=== PATIENT | female | born 1950 | race Caucasian/White ===

== ENCOUNTER 2018-11-21 00:37 | Outpatient (CLI) | payer MEDICARE, SELFPAY ==
--- NOTE | 2018-11-21 08:11 | DI.US_ITS ---
SYMPTOM/DIAGNOSIS: STAGE IV CHRONIC KIDNEY DISEASE. RENAL ULTRASOUND: Routine examination. No priors. The right kidney measures 10.3 cm. long. There does appear to be mild renal cortical atrophy. There is mild prominence of the right renal collecting system. Echogenic foci are seen within the right kidney suggesting non obstructing stones, the largest is seen in the mid pole measuring .5 cm. Blood flow is seen to the right kidney. The left kidney measures 11.2 cm. in length. There is mild renal cortical atrophy noted. There is a central, 1.7 cm. anechoic area in the left renal pelvis which may reflect a renal cyst. There do appear to be tiny echogenic foci within the left kidney suspicious for non obstructing stones. There is blood flow seen to the left kidney. The urinary bladder is inadequately filled with only 13 cc's. Bladder evaluation is limited due to inadequate filling. IMPRESSION: Mild bilateral renal cortical atrophy. Findings suggestive of bilateral nephrolithiasis. Findings suspicious for mild right hydronephrosis.
== END 2018-11-21 00:57 ==
PROVIDERS: PCP Family Medicine; Visit Provider Internal Medicine Nephrology
DX: N18.4 Chronic kidney disease, stage 4 (severe) (principal); N26.1 Atrophy of kidney (terminal); N20.0 Calculus of kidney; N13.30 Unspecified hydronephrosis
CPT/HCPCS: 76770

== ENCOUNTER 2020-02-20 01:34 | Outpatient (CLI) | payer MEDICARE, SELFPAY ==
[2020-02-20 11:51] LABS: Abs Immature Grans 0.02 k/cumm (0.0-0.09); Absolute Basophil Count 0.03 k/cumm (0.0-0.2); Absolute Eosinophil Count 0.19 k/cumm (0.0-0.7); Absolute Lymphocyte Count 1.46 k/cumm (1.2-3.4); Absolute Monocyte Count 0.49 k/cumm (0.11-0.7); Absolute Neutrophil Count 3.55 k/cumm (1.2-6.7); Basophils % 0.5; Eosinophils % 3.3; HCT 42.3 % (36.0-46.0); HGB 13.9 g/dL (12.0-15.5); Immature Grans % 0.3 %; Lymphocytes % 25.4; Mean Corp. HGB Concentration 32.9 g/dL (32.0-36.0); Mean Corpuscular Hemoglobin 29.4 pg (27.0-33.0); Mean Corpuscular Volume 89.4 fL (80-95); Mean Platelet Volume 10.6 fL (8.0-11.0); Monocytes % 8.5; Platelet Count 250 x1000/uL (130-400); RBC 4.73 m/cumm (4.00-5.20); RBC Distribution Width 14.4 % (11.7-14.6); White Blood Cell Count 5.74 k/cumm (4.4-10.8)
[2020-02-20 13:13] LABS: Albumin 3.9 g/dL (3.4-5.0); Anion Gap 10.3 mmol/L (3-11); BUN 29 mg/dL (7-18); CO2 21.7 mmol/L (21.0-32.0); CREATININE 2.04 mg/dL (0.55-1.02); Calcium 9.3 mg/dL (8.5-10.1); Chloride 107 mmol/L (98-107); Estimated GFR 24.15 (mL/min/1.73m2); Glucose 164 mg/dL (74-106); PHOSPHORUS 4.5 mg/dL (2.6-4.7); Sodium 139 mmol/L (136-145); Uric Acid 6.3 mg/dL (2.6-6.0)
[2020-02-20 13:23] LABS: Potassium 6.2 mmol/L (3.5-5.1)
[2020-02-20 13:25] LABS: Calculated LDL 75 mg/dL (<100); Cholesterol 161 mg/dL (<200); HDL Cholesterol 39 mg/dL (40-60); TSH (W/Ref FT4) 5.61 uIU/mL (0.36-3.74); Triglyceride 239 mg/dL (<150)
[2020-02-20 14:01] LABS: FREE T4 1.01 ng/dL (0.76-1.46)
[2020-02-21 08:42] LABS: Parathyroid Hormone,Intact 109 pg/mL (19-88)
== END 2020-02-20 01:54 ==
PROVIDERS: PCP Family Medicine; Visit Provider Internal Medicine Nephrology
DX: E11.9 Type 2 diabetes mellitus without complications (principal); N18.9 Chronic kidney disease, unspecified; R82.998 Other abnormal findings in urine
CPT/HCPCS: 36415; 80048; 80061; 82040; 83970; 84100; 84439; 84443; 84550; 85025

== ENCOUNTER 2020-02-20 15:26 | Observation (INO) | payer MEDICARE, SELFPAY ==
--- NOTE | 2020-02-20 15:30 | RT.EKG_ITS ---
APPROVED REPORT Exam: Resting ECG Patient Location: E HR:85 bpm ECG Measurements Heart Rate 85 AXIS SD 175 P 40 QRSd 96 QRS -17 QT 365 T 72 QTc 435 <Conclusion> Sinus rhythm...normal P axis, V-rate 60- 99. T wave inversion aVL. No acute ST ischemic changes. I have reviewed and interpreted ECG and agree with software generated interpretation.
[2020-02-20 15:35] VITALS: BP 174/99; PULSE 88; RESP 18; TEMP 37.1; O2SAT 95
[2020-02-20 15:58] LABS: Abs Immature Grans 0.02 k/cumm (0.0-0.09); Absolute Basophil Count 0.03 k/cumm (0.0-0.2); Absolute Eosinophil Count 0.16 k/cumm (0.0-0.7); Absolute Lymphocyte Count 1.81 k/cumm (1.2-3.4); Absolute Monocyte Count 0.56 k/cumm (0.11-0.7); Basophils % 0.5; Eosinophils % 2.6; HCT 42.8 % (36.0-46.0); Immature Grans % 0.3 %; Lymphocytes % 29.8; Mean Corp. HGB Concentration 32.7 g/dL (32.0-36.0); Mean Corpuscular Hemoglobin 28.9 pg (27.0-33.0); Mean Corpuscular Volume 88.2 fL (80-95); Mean Platelet Volume 10.5 fL (8.0-11.0); Monocytes % 9.2; Neutrophils % 57.6; Platelet Count 214 x1000/uL (130-400); RBC 4.85 m/cumm (4.00-5.20); RBC Distribution Width 14.3 % (11.7-14.6); White Blood Cell Count 6.08 k/cumm (4.4-10.8)
[2020-02-20 16:01] LABS: Bilirubin Negative (Negative); Blood Negative (Negative); Clarity Clear (Clear); Glucose Negative (Negative); Ketones Negative (Negative); Leukocyte Esterase Trace (Negative); Nitrite Negative (Negative); Specific Gravity 1.025 (1.005-1.025); Urobilinogen 0.2 EU/dL (Up TO 0.2); pH 5.5 (5-8)
[2020-02-20 16:13] LABS: Bacteria Negative HPF (Negative); C & S Indicated? Yes; Casts Negative LPF (Negative); Crystals Negative HPF (Negative); Epithelial Cells Few HPF (Negative); Mucus Negative (Negative); Other Cells Negative (Negative); RBC Negative HPF (0-2)
[2020-02-20 16:13] LABS: ALT 10 U/L (14-59); AST 18 U/L (15-37); Alkaline Phosphatase 68 U/L (46-116); Anion Gap 10.2 mmol/L (3-11); BUN 28 mg/dL (7-18); Bilirubin, Total 0.6 mg/dL (0.2-1.0); CO2 22.8 mmol/L (21.0-32.0); CREATININE 2.16 mg/dL (0.55-1.02); Calcium 9.4 mg/dL (8.5-10.1); Chloride 107 mmol/L (98-107); Glucose 110 mg/dL (74-106); Magnesium 2.1 mg/dL (1.8-2.4); Potassium 5.6 mmol/L (3.5-5.1); Sodium 140 mmol/L (136-145)
[2020-02-20 16:14] LABS: Troponin I < 0.05 ng/mL (<0.06)
[2020-02-20 16:38] VITALS: BP 143/69; PULSE 85; RESP 16; O2SAT 95
--- NOTE | 2020-02-20 16:38 | ED.GENADUL_ITS ---
Discharge Plan Disposition Patient Disposition: [facility] INPATIENT Condition: Stable Discharge Details Chief Complaint: GenMedical Clinical Impression: Hyperkalemia, Chronic kidney disease Primary Care Provider: Anthony Pearl ED Provider: Fabienne Jackson Home Meds and New Rx's Prescriptions: Continued Humulin R Regular U-100 Insuln 100 unit/mL solution See Rx Instructions SC USEASDIRECTD Qty: 10 RF: 12 amlodipine 10 mg tablet 10 mg PO DAILY Qty: 90 RF: 3 artificial tears(hypromellose) 0.3 % drops 1 drp OP QAM PRNRF: 0 insulin NPH isoph U-100 human 100 unit/mL suspension 50 unit SC BID Qty: 10 RF: 6 magnesium chloride tablet 64 mg PO BID RF: 0 acetaminophen [Tylenol Extra Strength] 500 MG tablet 1,000 mg PO DAILY RF: 0 anastrozole 1 mg tablet 1 mg PO DAILY Qty: 90 RF: 3 (DME) BD Insulin Syringe 1 mL 26 x 1/2 syringe 1 ea Miscellaneous Qty: 90 RF: 3 (DME) pen needle, diabetic [BD Ultra-Fine Yue Pen Needle] 32 gauge x 5/32 needle 1 ea Miscellaneous TID Qty: 200 RF: 12 levothyroxine 75 mcg tablet 75 mcg PO DAILY Qty: 90 RF: 3 metoprolol succinate 50 mg tablet extended release 24 hr 50 mg PO DAILY 90 Days Qty: 90 RF: 3 simvastatin 40 mg tablet 20 mg PO QHS Qty: 45 RF: 3 aspirin [Aspir-81] 81 MG tablet,delayed release (DR/EC) 1 tab PO DAILY RF: 0 Discontinued lisinopril 40 mg tablet 40 mg PO DAILY Qty: 90 RF: 3 Discharge Instructions Instructions: Hyperkalemia (ED) Additional Instructions: Stop taking your lisinopril today. Increase your dose of metoprolol this evening from 50 mg to 75 mg daily. Follow-up with your scheduled appointment with your primary care doctor tomorrow for reevaluation and continued medication management as well as for referral for outpatient stress test and echocardiogram. Return to the emergency department if you develop any worsening or concerning symptoms. Discharge Data Discharge Physician: Fabienne Jackson Medical Decision Making 1610 -- 69-year-old female with a history of hypertension, hyperlipidemia, chronic kidney disease, diabetes, breast cancer in remission presents after sent by PCP for hyperkalemia of 6.2 on routine labs drawn today. Patient has no acut e complaints. Labs from today also note that patient's creatinine is 2.04 with a GFR of 24 which is a worsening of her baseline chronic kidney disease. BP is hypertensive 174/99. Patient is taking 10 mg amlodipine, 40 mg lisinopril, and 50 mg of metoprolol daily. EKG done on arrival notes a rate of 85 sinus with T wave inversion in aVL but no acute ST ischemic changes. Labs were repeated on patient arrival and note that potassium has mildly decreased to 5.6, creatinine 2.16, GFR 22. Troponin negative. 1630 --Case discussed with hospitalist who came to evaluate patient. Dr. Rodriguez came to evaluate patient in the ED. Recommends a dose of Lokelma and IV fluids and to recheck potassium and creatinine after 2 hours. If labs improve, patient can be discharged home with plan for holding lisinopril and increase her metoprolol to 75 mg daily. Patient has a follow-up appointment with her PCP office tomorrow. 1899 --repeat BMP notes that potassium has increased to 6.1. Minimal improve ment in creatinine. Patient still asymptomatic. Will admit overnight for telemetry monitoring. Patient is agreeable with plan. Case discussed with hospitalist who accepts patient for admission. Medical Records Medical records reviewed: Yes I reviewed the patient's medical records. Lab Data Lab results reviewed: Yes I reviewed the patient's lab results. Labs: 02/20/20 13:55 Urine - Reflex from Ua Urine Culture - Pending Laboratory Tests Range/Units 02/20/20 02/20/20 02/20/20 13:55 15:50 15:50 WBC (4.4-10.8) k/cumm 6.08 RBC (4.00-5.20) m/cumm 4.85 Hgb (12.0-15.5) g/dL 14.0 Hct (36.0-46.0) % 42.8 MCV (80-95) fL 88.2 MCH (27.0-33.0) pg 28.9 MCHC (32.0-36.0) g/dL 32.7 RDW (11.7-14.6) % 14.3 Plt Count (130-400) x1000/uL 214 MPV (8.0-11.0) fL 10.5 Immature Gran % % 0.3 Neutrophils % 57.6 Lymphocytes % 29.8 Monocytes % 9.2 Eosinophils % 2.6 Basophils % 0.5 Absolute Neutrophils (1.2-6.7) k/cumm 3.50 Absolute Lymphocytes (1.2-3.4) k/cumm 1.81 Absolute Monocytes (0.11-0.7) k/cumm 0.56 Absolute Eosinophils (0.0-0.7) k/cumm 0.16 Absolute Basophils (0.0-0.2) k/cumm 0.03 Sodium (136-145) mmol/L 140 Potassium (3.5-5.1) mmol/L 5.6 H Chloride (98-107) mmol/L 107 Carbon Dioxide (21.0-32.0) mmol/L 22.8 Anion Gap (3-11) mmol/L 10.2 BUN (7-18) mg/dL 28 H Creatinine (0.55-1.02) mg/dL 2.16 H Estimated GFR/1.73 m2 (mL/min/1.73m2) 22.60 Glucose (74-106) mg/dL 110 H D Calcium (8.5-10.1) mg/dL 9.4 Magnesium (1.8-2.4) mg/dL 2.1 Total Bilirubin (0.2-1.0) mg/dL 0.6 AST (15-37) U/L 18 ALT (14-59) U/L 10 L Alkaline Phosphatase (46-116) U/L 68 Troponin I (<0.06) ng/mL < 0.05 Total Protein (6.4-8.2) g/dL 8.0 Albumin (3.4-5.0) g/dL 4.0 Urine Color (Yellow) Yellow Urine Clarity (Clear) Clear Urine pH (5-8) 5.5 Ur Specific [place] (1.005-1.025) 1.025 Urine Protein (Negative) mg/dL 30 H Urine Ketones (Negative) mg/dL Negative Urine Blood (Negative) Negative Urine Nitrite (Negative) Negative Urine Bilirubin (Negative) Negative Urine Urobilinogen (Up TO 0.2) EU/dL 0.2 Ur Leukocyte Esterase (Negative) Trace H Urine RBC (0-2) HPF Negative Urine WBC (0-5) HPF 5-10 Ur Epithelial Cells (Negative) HPF Few Urine Crystals (Negative) HPF Negative Urine Bacteria (Negative) HPF Negative Urine Casts (Negative) LPF Negative Urine Mucus (Negative) Negative Urine Other (Negative) Negative Ur Culture Indicated? Yes Urine Glucose (Negative) mg/dL Negative Range/Units 02/20/20 18:50 WBC (4.4-10.8) k/cumm RBC (4.00-5.20) m/cumm Hgb (12.0-15.5) g/dL Hct (36.0-46.0) % MCV (80-95) fL MCH (27.0-33.0) pg MCHC (32.0-36.0) g/dL RDW (11.7-14.6) % Plt Count (130-400) x1000/uL MPV (8.0-11.0) fL Immature Gran % % Neutrophils % Lymphocytes % Monocytes % Eosinophils % Basophils % Absolute Neutrophils (1.2-6.7) k/cumm Absolute Lymphocytes (1.2-3.4) k/cumm Absolute Monocytes (0.11-0.7) k/cumm Absolute Eosinophils (0.0-0.7) k/cumm Absolute Basophils (0.0-0.2) k/cumm Sodium (136-145) mmol/L 139 Potassium (3.5-5.1) mmol/L 6.1 H* Chloride (98-107) mmol/L 108 H Carbon Dioxide (21.0-32.0) mmol/L 22.9 Anion Gap (3-11) mmol/L 8.1 BUN (7-18) mg/dL 28 H Creatinine (0.55-1.02) mg/dL 2.06 H Estimated GFR/1.73 m2 (mL/min/1.73m2) 23.88 Glucose (74-106) mg/dL 84 Calcium (8.5-10.1) mg/dL 8.7 Magnesium (1.8-2.4) mg/dL Total Bilirubin (0.2-1.0) mg/dL AST (15-37) U/L ALT (14-59) U/L Alkaline Phosphatase (46-116) U/L Troponin I (<0.06) ng/mL Total Protein (6.4-8.2) g/dL Albumin (3.4-5.0) g/dL Urine Color (Yellow) Urine Clarity (Clear) Urine pH (5-8) Ur Specific [place] (1.005-1.025) Urine Protein (Negative) mg/dL Urine Ketones (Negative) mg/dL Urine Blood (Negative) Urine Nitrite (Negative) Urine Bilirubin (Negative) Urine Urobilinogen (Up TO 0.2) EU/dL Ur Leukocyte Esterase (Negative) Urine RBC (0-2) HPF Urine WBC (0-5) HPF Ur Epithelial Cells (Negative) HPF Urine Crystals (Negative) HPF Urine Bacteria (Negative) HPF Urine Casts (Negative) LPF Urine Mucus (Negative) Urine Other (Negative) Ur Culture Indicated? Urine Glucose (Negative) mg/dL ECG Data Attestation: I personally reviewed and interpreted this ECG (s) as follows: Interpretation: Rate of 85, sinus, no acute ST elevation or depression. CO 135. QRS 96. QTc 435. HPI General Mode of arrival: ambulatory . Date/Time Provider Initiated Documentation: 02/20/20 15:40 . Limitations to Documentation: no limitations . Information obtained by: patient . HPI Narrative: Pt is a 69yo F with a history of hypertension, diabetes, breast cancer in remission, chronic kidney disease who presents for evaluation after sent by PCP for high potassium noted on routine blood work today. Patient states she has a follow-up appointment with her primary care doctor tomorrow and had blood work drawn today as part of routine follow-up. She was noted to have a potassium of 6.2 today. She denies any acute symptoms. She does note that over the past few months she becomes more short of breath and fatigued with exertion but states this has been getting progressively worse over a few months denies any acute change in the past few days. Related Data Home Medications Medication Instructions Recorded Confirmed aspirin [Aspir-81] 1 tab PO DAILY 09/26/13 02/20/20 acetaminophen [Tylenol Extra 1,000 mg PO DAILY tab 04/09/18 02/20/20 Strength] anastrozole 1 mg tablet 1 mg PO DAILY #90 tab 07/30/18 02/20/20 insulin syringe-needle U-100 1 mL #90 syringe 03/14/19 10/08/19 26 x 1/2 pen needle, diabetic 32 gauge x #200 each 08/09/0110/08/19 amlodipine 10 mg tablet 10 mg PO DAILY #90 tab 04/09/19 02/20/20 insulin regular human 100 unit/mL See Rx Instructions SC 04/09/19 02/20/20 injection solution USEASDIRECTD #10 ml magnesium chloride 64 mg PO BID 04/09/19 02/20/20 levothyroxine 75 mcg tablet 75 mcg PO DAILY #90 tab 04/25/19 02/20/20 metoprolol succinate 50 mg 50 mg PO DAILY 90 Days #90 tab 05/20/19 02/20/20 tablet,extended release 24 hr simvastatin 40 mg tablet 20 mg PO QHS #45 tab 07/22/19 02/20/20 artificial tears(hypromellose) 0.3 1 drp OP QAM PRN ml 10/08/19 02/20/20 % eye drops insulin NPH isoph U-100 human 100 50 unit SC BID #10 ml 10/08/19 02/20/20 unit/mL subcutaneous suspension Previous Rx's Medication Instructions Recorded anastrozole 1 mg tablet 1 mg PO DAILY #90 tab 07/30/18 insulin syringe-needle U-100 1 mL #90 syringe 03/14/19 26 x 1/2 pen needle, diabetic 32 gauge x #200 each 03/14/19 amlodipine 10 mg tablet 10 mg PO DAILY #90 tab 04/09/19 insulin regular human 100 unit/mL See Rx Instructions SC 04/09/19 injection solution USEASDIRECTD #10 ml levothyroxine 75 mcg tablet 75 mcg PO DAILY #90 tab 04/25/19 metoprolol succinate 50 mg 50 mg PO DAILY 90 Days #90 tab 05/20/19 tablet,extended release 24 hr simvastatin 40 mg tablet 20 mg PO QHS #45 tab 07/22/19 insulin NPH isoph U-100 human 100 50 unit SC BID #10 ml 10/08/19 unit/mL subcutaneous suspension Allergies Allergy/AdvReac Type Severity Reaction Status Date / Time amoxicillin [Amoxicillin] Allergy Intermediate Hives Verified 02/20/20 16:33 General Stated Complaint: GenMedical OSIRIS: 3 Review of Systems All systems reviewed & are unremarkable except as noted in HPI and below Constitutional Constitutional: Reports as per HPI, Denies chills and Denies fever(s) Eyes Eyes: Denies blurry vision ENT Ears, Nose, Mouth, and Throat: Denies dizziness, Denies sore throat and Denies throat swelling Cardiovascular Cardiovascular: Denies chest pain and Denies dyspnea Respiratory Respiratory: Denies cough and Denies dyspnea Gastrointestinal Gastrointestinal: Denies abdominal pain, Denies diarrhea and Denies vomiting Genitourinary Genitourinary: Denies hematuria and Denies dysuria Musculoskeletal Musculoskeletal: Denies back pain and Denies numbness Integumentary/Breasts Skin/Breast: Denies lesions and Denies rash Neurologic Neurologic: Denies dizziness, Denies localized weakness and Denies numbness Allergic/Immunologic Allergic/Immunologic: Denies throat swelling [facility] Medical History (Updated 02/20/20 @ 18:56 by Fabienne Jackson DO) Hypothyroidism, unspecified (Inactive 03/28/18) Stage 3 chronic kidney disease (Inactive 03/28/18) 01/30/19 [facility] [place] stable stage 4 A2 CKD 04/24/19 [facility] [place] Nephrology - f/u 6 months Type 2 diabetes mellitus without complication (Inactive ) Unspecified essential hypertension (Inactive 03/28/18) Surgical History (Updated 09/27/13 @ 15:55 by Jenni Leblanc) Breast, Lumpectomy Breast, Mastectomy Family History Mother Neoplasm Father No problems noted. Other COPD (chronic obstructive pulmonary disease) Social History (Updated 10/09/18 @ 13:00 by Analia Wood LPN) Smoking/Tobacco Use Status: Never Alcohol Intake: never Drug use: Never Substance use type: does not use Housing: house What type of physical activity do you participate in: regular exercise Seatbelt use: always Drive intox or ride w/intox concrete mixer truck driver: No Working smoke detector in home: Yes Fire extinguisher in home: Yes Carbon monox detector in home: Yes Do you feel safe at home: Yes Exam Const General: cooperative, healthy appearing and no acute distress HENMT Head: normal to inspection Face and sinus: normal facial exam Eyes General: appearance normal, both eyes and all related structures EOM: EOM intact bilaterally Neck Neck: normal visual inspection and No submandibular swelling Lymphatic: no lymphadenopathy noted Chest Chest: normal inspection of the chest and no tenderness Resp Effort & Inspection: normal respiratory effort and able to speak in complete sentences Auscultation: clear to auscultation bilaterally Cardio Rate: regular rate Rhythm: regular rhythm GI Inspection: normal to inspection Palpation: soft, not firm, not rigid and nontender Auscultation: normal bowel sounds Skin General skin exam: no rashes or lesions noted Neuro General: patient alert, patient awake and patient oriented x3 Cognition: normal cognition Speech: speech normal Motor: muscle tone normal throughout Sensory Exam: no sensory deficits noted Extrem General: normal to inspection, full ROM, capillary refill normal, no calf tenderness bilaterally and no edema Psych Appearance: grossly normal Mental Status: mental status grossly normal Speech and Movement: speech and movement normal Affect: normal affect Course Vital Signs Vital signs: Vital Signs Temperature 98.8 F 02/20/20 15:35 Pulse 88 02/20/20 15:35 Respiratory Rate 18 02/20/20 15:35 Blood Pressure 174/99 H 02/20/20 15:35 Pulse Oximetry 95 02/20/20 15:35 Temperature 98.8 F 02/20/20 15:35 Temperature Source Temporal Artery Scan 02/20/20 15:35 Pulse 88 02/20/20 15:35 Respiratory Rate 18 02/20/20 15:35 Respiratory Effort Non-Labored 02/20/20 15:43 Respiratory Depth Normal 02/20/20 15:43 Respiratory Pattern Normal 02/20/20 15:43 Blood Pressure 174/99 H 02/20/20 15:35 Pulse Oximetry 95 02/20/20 15:35 Oxygen Delivery Method Room Air 02/20/20 15:35 Oxygen Flow Rate 0 02/20/20 15:35 Pain Level 0 02/20/20 15:35 Lab/Test Results Lab/Test Results: 02/20/20 13:55 Urine - Reflex from Ua Urine Culture - Pending Laboratory Tests Range/Units 02/20/20 02/20/20 02/20/20 13:55 15:50 15:50 WBC (4.4-10.8) k/cumm 6.08 RBC (4.00-5.20) m/cumm 4.85 Hgb (12.0-15.5) g/dL 14.0 Hct (36.0-46.0) % 42.8 MCV (80-95) fL 88.2 MCH (27.0-33.0) pg 28.9 MCHC (32.0-36.0) g/dL 32.7 RDW (11.7-14.6) % 14.3 Plt Count (130-400) x1000/uL 214 MPV (8.0-11.0) fL 10.5 Immature Gran % % 0.3 Neutrophils % 57.6 Lymphocytes % 29.8 Monocytes % 9.2 Eosinophils % 2.6 Basophils % 0.5 Absolute Neutrophils (1.2-6.7) k/cumm 3.50 Absolute Lymphocytes (1.2-3.4) k/cumm 1.81 Absolute Monocytes (0.11-0.7) k/cumm 0.56 Absolute Eosinophils (0.0-0.7) k/cumm 0.16 Absolute Basophils (0.0-0.2) k/cumm 0.03 Sodium (136-145) mmol/L 140 Potassium (3.5-5.1) mmol/L 5.6 H Chloride (98-107) mmol/L 107 Carbon Dioxide (21.0-32.0) mmol/L 22.8 Anion Gap (3-11) mmol/L 10.2 BUN (7-18) mg/dL 28 H Creatinine (0.55-1.02) mg/dL 2.16 H Estimated GFR/1.73 m2 (mL/min/1.73m2) 22.60 Glucose (74-106) mg/dL 110 H D Calcium (8.5-10.1) mg/dL 9.4 Magnesium (1.8-2.4) mg/dL 2.1 Total Bilirubin (0.2-1.0) mg/dL 0.6 AST (15-37) U/L 18 ALT (14-59) U/L 10 L Alkaline Phosphatase (46-116) U/L 68 Troponin I (<0.06) ng/mL < 0.05 Total Protein (6.4-8.2) g/dL 8.0 Albumin (3.4-5.0) g/dL 4.0 Urine Color (Yellow) Yellow Urine Clarity (Clear) Clear Urine pH (5-8) 5.5 Ur Specific [place] (1.005-1.025) 1.025 Urine Protein (Negative) mg/dL 30 H Urine Ketones (Negative) mg/dL Negative Urine Blood (Negative) Negative Urine Nitrite (Negative) Negative Urine Bilirubin (Negative) Negative Urine Urobilinogen (Up TO 0.2) EU/dL 0.2 Ur Leukocyte Esterase (Negative) Trace H Urine RBC (0-2) HPF Negative Urine WBC (0-5) HPF 5-10 Ur Epithelial Cells (Negative) HPF Few Urine Crystals (Negative) HPF Negative Urine Bacteria (Negative) HPF Negative Urine Casts (Negative) LPF Negative Urine Mucus (Negative) Negative Urine Other (Negative) Negative Ur Culture Indicated? Yes Urine Glucose (Negative) mg/dL Negative
[2020-02-20] MEDS: Sodium Zirconium Cyclosilicate 10 GM PKT PO ×2 (16:46→23:09)
[2020-02-20] MEDS: Normal Saline 500 ML IV (16:47)
--- NOTE | 2020-02-20 16:51 | W.PM.PROGNOT ---
Date of Service Date of service: 02/20/20 Time of Service: 16:51 Subjective Subjective Interval history since last seen: I was asked by Dr Jackson to see Miss Sorto in brief consultation for hyperkalemia while she was in the ED for same. Her potassium on this am's labs was 6.2. She was told to come to the ED, where her potassium was 5.6 without any interventions. Of note, the patient is on lisinopril 40 mg PO daily. She states that she has not had any recent medication dose adjustments. She states that as far as potassium rich foods, she has NOT being eating bananas, but does admit to eating lots of cheese, which could be the source of hyperkalemia. She drinks 1 L of water per day and does not endorse drinking sodas. The patient denies any chest pain or shortness of breath at present, but endorses worsening endurance as well as exertional dyspnea for months. She has not had a recent echo or a stress test. Her EKG does not show signs of hyperkalemia. Recommendations: administer 1 dose of lokelma and repeat BMP in 2-3 hours while hydrating with IVF in the ED. If potassium goes up, would contact hospitalists for admission. The patient should not be resumed on her lisinopril on discharge. Her metoprolol succinate should be increased to 75 mg PO daily as her heart rate permits it, and she will need close follow up with her PCP for blood pressure monitoring and repeat labs. She should probably drink more than 1 L of water per day for the next couple of days. She should have her blood work repeated in 48 hours. Finally, she would benefit from nonurgent outpatient echo and stress test. Please, do not hesitate to re-consult hospitalists if her hyperkalemia is refractory to lokelma. Objective Objective Clinical Data: Abnormal lab results 02/20/20 02/20/20 Range/Units 13:55 15:50 Potassium 5.6 H (3.5-5.1) mmol/L BUN 28 H (7-18) mg/dL Creatinine 2.16 H (0.55-1.02) mg/dL Glucose 110 H D (74-106) mg/dL ALT 10 L (14-59) U/L Urine Protein 30 H (Negative) mg/dL Ur Leukocyte Esterase Trace H (Negative) Vital Signs Temperature 37.1 C 02/20/20 15:35 Temperature Source Temporal Artery Scan 02/20/20 15:35 Pulse 85 02/20/20 16:38 Respiratory Rate 16 02/20/20 16:38 Respiratory Effort Non-Labored 02/20/20 15:43 Respiratory Depth Normal 02/20/20 15:43 Respiratory Pattern Normal 02/20/20 15:43 Blood Pressure 143/69 H 02/20/20 16:38 Pulse Oximetry 95 02/20/20 16:38 Oxygen Delivery Method Room Air 02/20/20 16:38 Oxygen Flow Rate 0 02/20/20 16:38 Pain Level 0 02/20/20 16:38 Intake & Output 02/19/20 02/20/20 02/20/20 23:59 11:59 23:59 Weight 86.183 kg Laboratory Results WBC 6.08 k/cumm (4.4-10.8) 02/20/20 15:50 RBC 4.85 m/cumm (4.00-5.20) 02/20/20 15:50 Hgb 14.0 g/dL (12.0-15.5) 02/20/20 15:50 Hct 42.8 % (36.0-46.0) 02/20/20 15:50 MCV 88.2 fL (80-95) 02/20/20 15:50 MCH 28.9 pg (27.0-33.0) 02/20/20 15:50 MCHC 32.7 g/dL (32.0-36.0) 02/20/20 15:50 RDW 14.3 % (11.7-14.6) 02/20/20 15:50 Plt Count 214 x1000/uL (130-400) 02/20/20 15:50 MPV 10.5 fL (8.0-11.0) 02/20/20 15:50 Immature Gran % 0.3 % 02/20/20 15:50 Neutrophils % 57.6 02/20/20 15:50 Lymphocytes % 29.8 02/20/20 15:50 Monocytes % 9.2 02/20/20 15:50 Eosinophils % 2.6 02/20/20 15:50 Basophils % 0.5 02/20/20 15:50 Absolute Neutrophils 3.50 k/cumm (1.2-6.7) 02/20/20 15:50 Absolute Lymphocytes 1.81 k/cumm (1.2-3.4) 02/20/20 15:50 Absolute Monocytes 0.56 k/cumm (0.11-0.7) 02/20/20 15:50 Absolute Eosinophils 0.16 k/cumm (0.0-0.7) 02/20/20 15:50 Absolute Basophils 0.03 k/cumm (0.0-0.2) 02/20/20 15:50 Sodium 140 mmol/L (136-145) 02/20/20 15:50 Potassium 5.6 mmol/L (3.5-5.1) H 02/20/20 15:50 Chloride 107 mmol/L (98-107) 02/20/20 15:50 Carbon Dioxide 22.8 mmol/L (21.0-32.0) 02/20/20 15:50 Anion Gap 10.2 mmol/L (3-11) 02/20/20 15:50 BUN 28 mg/dL (7-18) H 02/20/20 15:50 Creatinine 2.16 mg/dL (0.55-1.02) H 02/20/20 15:50 Estimated GFR/1.73 m2 22.60 (mL/min/1.73m2) 02/20/20 15:50 Glucose 110 mg/dL (74-106) H D 02/20/20 15:50 Calcium 9.4 mg/dL (8.5-10.1) 02/20/20 15:50 Magnesium 2.1 mg/dL (1.8-2.4) 02/20/20 15:50 Total Bilirubin 0.6 mg/dL (0.2-1.0) 02/20/20 15:50 AST 18 U/L (15-37) 02/20/20 15:50 ALT 10 U/L (14-59) L 02/20/20 15:50 Alkaline Phosphatase 68 U/L (46-116) 02/20/20 15:50 Troponin I < 0.05 ng/mL (<0.06) 02/20/20 15:50 Total Protein 8.0 g/dL (6.4-8.2) 02/20/20 15:50 Albumin 4.0 g/dL (3.4-5.0) 02/20/20 15:50 Urine Color Yellow (Yellow) 02/20/20 13:55 Urine Clarity Clear (Clear) 02/20/20 13:55 Urine pH 5.5 (5-8) 02/20/20 13:55 Ur Specific [place] 1.025 (1.005-1.025) 02/20/20 13:55 Urine Protein 30 mg/dL (Negative) H 02/20/20 13:55 Urine Ketones Negative mg/dL (Negative) 02/20/20 13:55 Urine Blood Negative (Negative) 02/20/20 13:55 Urine Nitrite Negative (Negative) 02/20/20 13:55 Urine Bilirubin Negative (Negative) 02/20/20 13:55 Urine Urobilinogen 0.2 EU/dL (Up TO 0.2) 02/20/20 13:55 Ur Leukocyte Esterase Trace (Negative) H 02/20/20 13:55 Urine RBC Negative HPF (0-2) 02/20/20 13:55 Urine WBC 5-10 HPF (0-5) 02/20/20 13:55 Ur Epithelial Cells Few HPF (Negative) 02/20/20 13:55 Urine Crystals Negative HPF (Negative) 02/20/20 13:55 Urine Bacteria Negative HPF (Negative) 02/20/20 13:55 Urine Casts Negative LPF (Negative) 02/20/20 13:55 Urine Mucus Negative (Negative) 02/20/20 13:55 Urine Other Negative (Negative) 02/20/20 13:55 Ur Culture Indicated? Yes 02/20/20 13:55 Urine Glucose Negative mg/dL (Negative) 02/20/20 13:55
[2020-02-20 18:53] VITALS: BP 132/60; PULSE 72; RESP 16; O2SAT 96
[2020-02-20 19:04] LABS: Anion Gap 8.1 mmol/L (3-11); BUN 28 mg/dL (7-18); CO2 22.9 mmol/L (21.0-32.0); CREATININE 2.06 mg/dL (0.55-1.02); Calcium 8.7 mg/dL (8.5-10.1); Chloride 108 mmol/L (98-107); Estimated GFR 23.88 (mL/min/1.73m2); Glucose 84 mg/dL (74-106); Sodium 139 mmol/L (136-145)
[2020-02-20 19:07] LABS: Potassium 6.1 mmol/L (3.5-5.1)
--- NOTE | 2020-02-20 19:55 | NUR.NOTE ---
report given to RAVI Dela Cruz
--- NOTE | 2020-02-20 20:36 | W.PM.HP.N ---
Date of service: 02/20/20 Time of Service: 20:36 Assessment and Plan Assessment and plan (1) Hyperkalemia: Status: Acute Assessment and plan: Given the patient's potassium remains at a critical level despite initial treatment emergency room over the past several hours, she will be admitted for observation ongoing treatment of hyperkalemia. I will continue the potassium binder as well as another bolus of normal saline with some furosemide. Fortunately, she did not have EKG changes even at the initial higher potassium levels, I do not think there is a role for calcium gluconate or more aggressive therapy such as bicarbonate or additional insulin and glucose. she will be monitored on telemetry. In terms of the cause, it seems pretty clear that she trends towards hyperkalemia, and the increase of her KEZIA inhibitor dose back in June the setting of her renal insufficiency has pushed her into the critical zone. We are holding the lisinopril for now, but she would likely benefit from resumption of his therapy at a low dose. She has an appointment with her ror engineer next week, so it would make sense to defer this at discharge. (2) Acute on chronic renal failure: Status: Acute Assessment and plan: Patient's creatinine is up from 1.5-2. The increase in lisinopril could have also contributed to this. We will continue to monitor this. (3) Malignant neoplasm of unspecified site of right female breast: Status: Acute Assessment and plan: In remission. Continue anastrozole. (4) Diabetes type 2, controlled: Status: Chronic Assessment and plan: Patient has had improved control on her NPH and regular regimen. She has been having some low sugars, but we will not change this, as it was chosen for cost considerations. (5) Hypertension: Status: Chronic Assessment and plan: Patient will likely need additional blood pressure medication after stopping the lisinopril. The metoprolol has been increased slightly to 75 mg metoprolol succinate. Thiazide diuretic is unlikely to work with her GFR. She is on a good dose of amlodipine. I think it makes sense to defer this to the ror engineer as well. (6) Hypothyroidism, unspecified: Status: Acute Assessment and plan: The patient's TSH is slightly elevated, with a normal free T4. She may benefit from a slight up titration in her levothyroxine dose, but she is at high risk for atrial fibrillation so we would have to be careful. I will defer this to the primary care physician. (7) Dyspnea on exertion: Status: Acute Assessment and plan: This is a subacute issue that was noted in review of systems. EKG and troponin here are reassuring. She is not in overt congestive heart failure by exam. She may benefit from a stress test as an outpatient. (8) DVT prophylaxis: Status: Acute Assessment and plan: Lovenox while inpatient. (9) Discharge planning issues: Status: Acute Assessment and plan: Patient is stable on the medical floor on observation status with telemetry monitoring. I did confirm she is full code, but does not want prolonged intubation History of Present Illness History of Present Illness Chief Complaint: Hyperkalemia Narrative: 69-year-old woman with stage IIIb chronic renal insufficiency and type 2 diabetes on insulin presented to the emergency room after labs done this morning to follow-up on her kidney disease demonstrated a potassium of 6.2. Patient did not have any new symptoms in the days leading up to her admission. She denies palpitations, or chest pain or pressure. She denies edema. She is been urinating normally. She was called by her [facility] ror engineer and told to report to the emergency room. In the emergency room, repeat potassium was 5.6. She was given a dose of sodium zirconium cyclosilicate and a liter of normal saline. Repeat potassium got worse back up to 6.1 with no significant change in the creatinine. For this reason was was called for admission. Patient denied any recent change in her diet. She does not use light salt. She has no recent change to her water. She has not been taking NSAIDs or other [id number] medications or supplements. Review of her history reveals that in June 2019 her lisinopril was increased from 20 mg to 40 mg by her primary care physician. Her most recent potassium prior to today was in April 2019, when it was 5.0 at [facility]. Her creatinine at that point was 1.54. Her potassium was not rechecked in the time from the change in lisinopril dose until today. Of note, the patient has a previous admission for hyperkalemia 2013, which was precipitated by trimethoprim/sulfamethoxazole. Review of Systems Narrative: General: No fevers or chills. No weight changes. Eyes: No eye pain or vision changes ENT: She has a little postnasal drip chronically. No nasal congestion or sore throat. No oral lesions. Cardiovascular: As per HPI. She has had some dyspnea on exertion over the past several months, not worse today. No orthopnea. Lungs: Chronic tickly cough. No sputum production. No shortness of breath at rest or wheeze GI: No nausea or vomiting. No diarrhea or constipation. No blood in the stool or melena. No heartburn. : No dysuria or hematuria. No change in urine flow. MSK: No new joint pain or swelling Skin: No rashes, significant bruising, or sores Neurologic: No headache or dizziness. No focal numbness or weakness. [facility] Medical History (Updated 02/20/20 @ 21:06 by Martin Fraire) Hypothyroidism, unspecified (Acute 03/28/18) Stage 3 chronic kidney disease (Inactive 03/28/18) 01/30/19 [facility] [place] stage 4 A2 CKD 04/24/19 [facility] [place]phrology - f/u 6 months Type 2 diabetes mellitus without complication (Inactive ~1996) Unspecified essential hypertension (Inactive 03/28/18) Surgical History Breast, Lumpectomy Breast, Mastectomy Family History Mother Neoplasm Father No problems noted. Other COPD (chronic obstructive pulmonary disease) Social History (Updated 02/20/20 @ 20:47 by Martin Fraire) Smoking/Tobacco Use Status: Never Alcohol Intake: never Drug use: Never Substance use type: does not use Housing: house What type of physical activity do you participate in: regular exercise Seatbelt use: always Drive intox or ride w/intox student truck driver: No Working smoke detector in home: Yes Fire extinguisher in home: Yes Carbon monox detector in home: Yes Do you feel safe at home: Yes Additional Social history: Lives in [place]. She is a retired RN, and has worked at [employer], [employer] [place], and is a volunteer on [employer]. Meds Home Medications and Allergies Home Medications Medication Instructions Recorded Confirmed Type aspirin [Aspir-81] 1 tab PO DAILY 09/26/13 02/20/20 History acetaminophen [Tylenol Extra 1,000 mg PO DAILY tab 04/09/18 02/20/20 History Strength] anastrozole 1 mg tablet 1 mg PO DAILY #90 tab 07/30/18 02/20/20 Rx insulin syringe-needle U-100 1 mL #90 syringe 03/14/19 10/08/19 Rx 26 x 1/2 pen needle, diabetic 32 gauge x #200 each 03/14/19 10/08/19 Rx /32 amlodipine 10 mg tablet 10 mg PO DAILY #90 tab 04/09/19 02/20/20 Rx insulin regular human 100 unit/mL See Rx Instructions SC 04/09/19 02/20/20 Rx injection solution USEASDIRECTD #10 ml magnesium chloride 64 mg PO BID 04/09/19 02/20/20 History levothyroxine 75 mcg tablet 75 mcg PO DAILY #90 tab 04/25/19 02/20/20 Rx metoprolol succinate 50 mg 50 mg PO DAILY 90 Days #90 tab 05/20/19 02/20/20 Rx tablet,extended release 24 hr simvastatin 40 mg tablet 20 mg PO QHS #45 tab 07/22/19 02/20/20 Rx artificial tears(hypromellose) 0.3 1 drp OP QAM PRN ml 10/08/19 02/20/20 History % eye drops insulin NPH isoph U-100 human 100 50 unit SC BID #10 ml 10/08/19 02/20/20 Rx unit/mL subcutaneous suspension Allergies Allergy/AdvReac Type Severity Reaction Status Date / Time amoxicillin [Amoxicillin] Allergy Intermediate Hives Verified 02/20/20 16:33 Exam Narrative Exam Narrative: General: Alert and oriented x3, sitting up and speaking in full sentences with no dyspnea, pleasant, no acute distress. HEENT: Normocephalic, atraumatic. Conjunctive are clear, no icterus. Pupils equal round reactive to light with extraocular motions intact. Moist mucous membranes with oropharynx benign. Neck is supple with no thyromegaly or other masses. No notable elevation of jugular venous distention. Lungs: Clear to auscultation bilaterally normal effort Heart: Regular rate and rhythm, no murmurs gallops or rubs. Abdomen: Active bowel sounds, soft, nontender and nondistended. No masses palpable limited by habitus Extremities: No cyanosis, clubbing, or edema. Lower extremities nontender to palpation. Neurologic: Cranial nerves II through XII grossly intact. Normal movement of 4 extremities. Normal coordination. Normal speech. No tremor. I could not elicit DTRs. Skin: No rashes, wounds, or other skin significant lesions Psychiatric: Normal mood and affect. Normal thought process. Results EKG: Per ED report (not in [facility]) sinus rhythm of 85 with normal P axis, normal rate, no ST ischemic changes. T wave inversion aVL. Labs Result diagrams: 02/20/20 15:50 02/20/20 18:50 Labs: Laboratory Results - last 24 hr 02/20/20 02/20/20 02/20/20 13:55 15:50 15:50 WBC 6.08 RBC 4.85 Hgb 14.0 Hct 42.8 MCV 88.2 MCH 28.9 MCHC 32.7 RDW 14.3 Plt Count 214 MPV 10.5 Immature Gran % 0.3 Neutrophils % 57.6 Lymphocytes % 29.8 Monocytes % 9.2 Eosinophils % 2.6 Basophils % 0.5 Absolute Neutrophils 3.50 Absolute Lymphocytes 1.81 Absolute Monocytes 0.56 Absolute Eosinophils 0.16 Absolute Basophils 0.03 Sodium 140 Potassium 5.6 H Chloride 107 Carbon Dioxide 22.8 Anion Gap 10.2 BUN 28 H Creatinine 2.16 H Estimated GFR/1.73 m2 22.60 Glucose 110 H D Calcium 9.4 Magnesium 2.1 Total Bilirubin 0.6 AST 18 ALT 10 L Alkaline Phosphatase 68 Troponin I < 0.05 Total Protein 8.0 Albumin 4.0 Urine Color Yellow Urine Clarity Clear Urine pH 5.5 Ur Specific Roslyn 1.025 Urine Protein 30 H Urine Ketones Negative Urine Blood Negative Urine Nitrite Negative Urine Bilirubin Negative Urine Urobilinogen 0.2 Ur Leukocyte Esterase Trace H Urine RBC Negative Urine WBC 5-10 Ur Epithelial Cells Few Urine Crystals Negative Urine Bacteria Negative Urine Casts Negative Urine Mucus Negative Urine Other Negative Ur Culture Indicated? Yes Urine Glucose Negative 02/20/20 18:50 WBC RBC Hgb Hct MCV MCH MCHC RDW Plt Count MPV Immature Gran % Neutrophils % Lymphocytes % Monocytes % Eosinophils % Basophils % Absolute Neutrophils Absolute Lymphocytes Absolute Monocytes Absolute Eosinophils Absolute Basophils Sodium 139 Potassium 6.1 H* Chloride 108 H Carbon Dioxide 22.9 Anion Gap 8.1 BUN 28 H Creatinine 2.06 H Estimated GFR/1.73 m2 23.88 Glucose 84 Calcium 8.7 Magnesium Total Bilirubin AST ALT Alkaline Phosphatase Troponin I Total Protein Albumin Urine Color Urine Clarity Urine pH Ur Specific Roslyn Urine Protein Urine Ketones Urine Blood Urine Nitrite Urine Bilirubin Urine Urobilinogen Ur Leukocyte Esterase Urine RBC Urine WBC Ur Epithelial Cells Urine Crystals Urine Bacteria Urine Casts Urine Mucus Urine Other Ur Culture Indicated? Urine Glucose Last Vital Signs Temp 37.1 C 02/20/20 15:35 Pulse 72 02/20/20 18:53 Resp 16 02/20/20 18:53 BP 132/60 02/20/20 18:53 Pulse Ox 96 02/20/20 18:53 COVID-19 Screening Have you,or household,traveled outside [place] in last 14 days?: No Had IN PERSON contact w/suspected or confirmed C-19 person: No
[2020-02-20] MEDS: Furosemide 20 MG/2 ML VIAL IVP (20:55)
[2020-02-20] MEDS: Normal Saline Flush 10 ML SYR IVP (20:55)
[2020-02-20 21:03] VITALS: BP 136/78; PULSE 74; RESP 18; TEMP 36.8; O2SAT 99
[2020-02-20] MEDS: Aspirin E.C. 81 MG TABEC PO (22:24)
[2020-02-20] MEDS: Metoprolol CR 25 MG TABCR 75 MG PO (22:24)
[2020-02-20] MEDS: Simvastatin 40 MG TAB 20 MG PO (22:25)
[2020-02-20] MEDS: amLODIPine 10 MG TAB PO (22:25)
[2020-02-20 23:13] VITALS: BP 137/76; PULSE 66; RESP 18; TEMP 36.3; O2SAT 98
[2020-02-20] MEDS: Insulin REGULAR-Human 100 UNITS/ML UNIT 20 UNITS SC (23:49)
[2020-02-21 04:35] VITALS: BP 145/77; PULSE 63; RESP 16; TEMP 36.9; O2SAT 95
[2020-02-21] MEDS: Levothyroxine 75 MCG TAB PO (04:35)
[2020-02-21] MEDS: Sodium Zirconium Cyclosilicate 10 GM PKT PO ×2 (06:32→14:43)
[2020-02-21 07:54] LABS: BUN 27 mg/dL (7-18); CREATININE 2.13 mg/dL (0.55-1.02); Calcium 9.5 mg/dL (8.5-10.1); Chloride 104 mmol/L (98-107); Estimated GFR 22.97 (mL/min/1.73m2); Glucose 152 mg/dL (74-106); NT-proBNP 70 pg/mL (<300); Potassium 5.3 mmol/L (3.5-5.1); Sodium 139 mmol/L (136-145)
[2020-02-21] MEDS: Magnesium Chloride 64 MG TABCR PO (08:15)
[2020-02-21] MEDS: Acetaminophen 500 MG TAB 1000 MG PO (08:15)
[2020-02-21] MEDS: Insulin NPH-Human 300 UNITS/3 ML PEN 50 UNIT SC (08:16)
[2020-02-21] MEDS: Insulin REGULAR-Human 100 UNITS/ML UNIT 15 UNITS SC (08:18)
[2020-02-21 08:24] VITALS: BP 129/74; PULSE 65; RESP 16; TEMP 36.5; O2SAT 98
--- NOTE | 2020-02-21 10:22 | INITIAL_ITS ---
- If Service Date Differs Date of service: 02/21/20 Time of Service: 10:22 Care Management Initial Assess REASON FOR HOSPITALIZATION:: Hyperkalemia PAST MEDICAL HISTORY/PAST SURGICAL HISTORY:: Medical History (Updated 02/20/20 @ 21:06 by Martin Fraire). Hypothyroidism, unspecified (Acute 03/28/18). Stage 3 chronic kidney disease (Inactive 03/28/18). 01/[place]/19 [facility] [place] stage 4 A2 CKD. 04/24/19 [facility] [place] - f/u 6 months. Type 2 diabetes mellitus without complication (Inactive ~1996). Unspecified essential hypertension (Inactive 03/28/18). Surgical History . Breast, Lumpectomy. Breast, Mastectomy PREVIOUS FUNCTIONAL STATUS/SOCIAL/FAMILY SUPPORTS:: Frank lives alone in a single family home in [place], [place]. 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 She is independent in the community and does not need any assistive devices or community support services. CURRENT FUNCTIONAL STATUS:: Frank was sitting up in a chair when CM met with her. She was pleasant and engaged readily in conversation. Frank shared some of the details of her career as a nurse in [employer] and shared that she had worked at [employer] for a time some 20 years ago. frank anticipates being discharged home later today and does not feel she will need any services. ADVANCE DIRECTIVES:: On file Torrie Thacker Esq - [facility] Has patient been provided with info about the portal/API?: Yes Did the patient sign up for the portal?: Yes (previously) CODE STATUS:: Full Code INSURANCE COVERAGE / FINANCIAL ISSUES:: Medicare. AARP group health CURRENT HOME/COMMUNITY SERVICES/EQUIPMENT:: none PRIMARY CARE PHYSICIAN:: Anthony Pearl POTENTIAL DISCHARGE NEEDS:: Follow up with PCP and discharge plan of care PATIENT/FAMILY EDUCATION NEEDS:: Discharge plan, limitations, follow up plan, A sk [place] TRANSPORTATION:: via private vehicle PLAN:: Frank will be discharged home with no new services. She willl follow up with her PCP and discharge plan of care and transport via private vehicle.
--- NOTE | 2020-02-21 10:38 | CHAPLAIN ---
Ghassan was up in her chair this morning. She said she was admitted for overnight and expects to be discharged this morning. She said she drove herself here and will drive herself home. I explained my role and offered support.
[2020-02-21] MEDS: Normal Saline Flush 10 ML SYR IVP (11:16)
[2020-02-21] MEDS: Insulin REGULAR-Human 100 UNITS/ML UNIT 18 UNITS SC (12:01)
[2020-02-21 12:08] VITALS: BP 128/75; PULSE 61; RESP 16; TEMP 36.9; O2SAT 97
[2020-02-21 13:16] LABS: Anion Gap 11.5 mmol/L (3-11); BUN 29 mg/dL (7-18); CO2 23.5 mmol/L (21.0-32.0); CREATININE 2.13 mg/dL (0.55-1.02); Calcium 9.2 mg/dL (8.5-10.1); Chloride 102 mmol/L (98-107); Estimated GFR 22.97 (mL/min/1.73m2); Potassium 5.1 mmol/L (3.5-5.1); Sodium 137 mmol/L (136-145)
[2020-02-21 13:28] LABS: Glucose 229 mg/dL (74-106)
[2020-02-21 14:05] LABS: COVID-19 RT-PCR UVMMC Result Negative (Negative)
--- NOTE | 2020-02-21 15:38 | DSE_ITS ---
Date of service: 02/21/20 Time of Service: 15:39 DS: Diagnosis Discharge Diagnosis (1) Hyperkalemia: Status: Suspected (2) Acute kidney injury superimposed on chronic kidney disease: Status: Acute (3) Hypertension: Status: Chronic (4) Dyspnea on exertion: Status: Acute (5) Diabetes type 2, controlled: Status: Chronic (6) Hypothyroidism, unspecified: Status: Acute (7) Malignant neoplasm of unspecified site of right female breast: Status: Acute (8) Hyperkalemia: Status: Acute Discharge Plan Disposition Patient Disposition: HOME Condition: Stable Discharge Details Chief Complaint: GenMedical Clinical Impression: Hyperkalemia, Chronic kidney disease Reason For Visit: HYPERKALEMIA Admit Date/Time: 02/20/20 19:14 Admit Provider: Martin Fraire Attending Provider: Martin Fraire Primary Care Provider: Anthony Pearl ED Provider: Fabienne Jackson [facility] Course Hospital Course: Ms Sorto is a 69 year old female with PMHx of hypertension on lisinopril, as well as CKD III, followed by nephrology at [facility], IDDM2, obesity with BMI of 48.8, who was observed on [facility] hospitalist service overnight from 02/20/2020 until 02/21/2020 for hyperkalemia and RICHARD on CKD, thought to likely be due to lisinopril. The patient has not had bloodwork done in >6 months, so we are not truly sure of the duration of the RICHARD or the hyperkalemia. Her potassium was 6.2 on routine bloodwork, it was 5.6 in the ED, but went back up to 6.1 despite administration of IVF and lokelma. She did not have any evidence of EKG abnormalities and remained in NSR with HR of 60-70 on telemetry. She was treated with continued lokelma, co-administration of IVF and lasix, and cessation of lisinopril. Her toprol XL was adjusted to 75 mg PO daily to compensate for the discontinuation of lisinopril. On the latest recheck, her potassium is 5.1 She will need to complete 2 more doses of lokelma on discharge. She already has a follow up appointment with her acute care assistant next week which she should keep. Bloodwork is being ordered for 1 week from now to ensure that hyperkalemia has not recurred. The patient did share with me that for some time she has had exertional dyspnea and would benefit from an outpatient echo and stress test, which I am ordering on discharge, but are for her PCP to follow up on. The patient feels well and is medically stable for discharge home. The patient tested negative for COVID-19 on this admission. Home Meds and New Rx's Prescriptions: New Lokelma 10 gram Powder In Packet 10 g PO TID@0630,1430,2230 Qty: 0 RF: 0 metoprolol succinate 50 mg tablet extended release 24 hr 75 mg PO DAILY 90 Days Qty: 135 RF: 3 Continued Humulin R Regular U-100 Insuln 100 unit/mL solution See Rx Instructions SC USEASDIRECTD Qty: 10 RF: 12 amlodipine 10 mg tablet 10 mg PO DAILY Qty: 90 RF: 3 artificial tears(hypromellose) 0.3 % drops 1 drp OP QAM PRNRF: 0 insulin NPH isoph U-100 human 100 unit/mL suspension 50 unit SC BID Qty: 10 RF: 6 magnesium chloride tablet 64 mg PO BID RF: 0 acetaminophen [Tylenol Extra Strength] 500 MG tablet 1,000 mg PO DAILY RF: 0 anastrozole 1 mg tablet 1 mg PO DAILY Qty: 90 RF: 3 (DME) BD Insulin Syringe 1 mL 26 x 1/2 syringe 1 ea Miscellaneous Qty: 90 RF: 3 (DME) pen needle, diabetic [BD Ultra-Fine Yue Pen Needle] 32 gauge x 5/32 needle 1 ea Miscellaneous TID Qty: 200 RF: 12 levothyroxine 75 mcg tablet 75 mcg PO DAILY Qty: 90 RF: 3 simvastatin 40 mg tablet 20 mg PO QHS Qty: 45 RF: 3 aspirin [Aspir-81] 81 MG tablet,delayed release (DR/EC) 1 tab PO DAILY RF: 0 Discontinued lisinopril 40 mg tablet 40 mg PO DAILY Qty: 90 RF: 3 Discharge Instructions Instructions: Potassium Content of Foods List (DC), Hyperkalemia (ED) Additional Instructions: Stop taking lisinopril. Finish the 2 doses of lokelma as prescribed. Follow a low potassium diet for the next week. Drink 1.5 L rather than 1 L of water per day in the next week. Increase your dose of metoprolol from 50 mg to 75 mg in the evening. Follow-up with your scheduled appointment with your primary care doctor as well as with your acute care assistant. Bloodwork in 1 week prior to your nephrology appointment. Follow up for your echo and stress test as well. Return to the hospital with any fever, bleeding, chest pain, or shortness of breath. Referrals: NEPHROLOGY,[facility] [OTHER] - Anthony Pearl DO [Primary Care Provider] - Activity:: Activity as Tolerated Equipment/Supplies:: No Equipment Needed Diet:: carb count low potassium Discharge Orders Discharge Orders: Discharge Order (Routine); Ordered 02/21/20 Ordered By: Renetta Rodriguez Other Ambulatory Orders: Basic Metabolic Panel (Routine) Timeframe: 1 Week Location: Determined by Patient Ordered By: Renetta Rodriguez US echocardiogram (Routine) Timeframe: 2 Weeks Facility: [facility] - Location: DIAGNOSTIC IMAGING Ordered By: Renetta Rodriguez Magnesium (Routine) Timeframe: 1 Week Location: Determined by Patient Ordered By: Renetta Rodriguez NM MPI rest & stress grp (Routine) Timeframe: 2 Weeks Facility: [facility] - Location: CARDIAC LAB Ordered By: Renetta Rodriguez DS: Summary Status at Discharge Functional status at discharge: independent ambulation Overall status at discharge: patient is back to baseline Mental Status: mental status grossly normal Speech and Movement: speech and movement normal Mood: congruent mood Affect: normal affect Exam Narrative Exam Narrative: General: Very pleasant obese middle-aged female, A&Ox3, sitting comfortably in a chair HEENT: EOMI, MMM Heart: RRR, no m/r/g Lungs: CTAB Abdomen: soft, nontender, nondistended Extremities: trace edema BLE's, no c/c. Psych Mental Status: mental status grossly normal Speech and Movement: speech and movement normal Mood: congruent mood Affect: normal affect DS: Data Vitals/I&O Vitals and I&O: Vital Signs Temperature 36.9 C 02/21/20 12:08 Temperature Source Temporal Artery Scan 02/21/20 12:08 Pulse 61 02/21/20 12:08 Pulse Rhythm Regular 02/21/20 08:25 Respiratory Rate 16 02/21/20 12:08 Respiratory Effort Non-Labored 02/21/20 08:25 Respiratory Depth Normal 02/21/20 08:25 Respiratory Pattern Normal 02/21/20 08:25 Blood Pressure 128/75 02/21/20 12:08 Pulse Oximetry 97 02/21/20 12:08 Oxygen Delivery Method Room Air 02/21/20 12:08 Oxygen Flow Rate 0 02/21/20 12:08 Pain Level 0 02/21/20 12:08 Intake & Output 02/20/20 02/21/20 02/21/20 23:59 11:59 23:59 Intake Total 760 / 760 810 / 810 Output Total 600 / 600 2200 / 2200 Balance 160 / 160 -1390 / -1390 Weight 86.183 kg 124.9 kg Intake: IV 520 / 520 Oral 240 / 240 800 / 800 Output: Urine 600 / 600 2200 / 2200 Other: Urine Color Light Tresa Yellow Urine Appearance Clear Clear Urine Odor Normal Voiding Methods Toilet Toilet Data Completed and Pending Labs on day of discharge: Labs from last 24 hours 02/21/20 02/21/20 02/21/20 12:43 07:10 07:10 WBC RBC Hgb Hct MCV MCH MCHC RDW Plt Count MPV Immature Gran % Neutrophils % Lymphocytes % Monocytes % Eosinophils % Basophils % Absolute Neutrophils Absolute Lymphocytes Absolute Monocytes Absolute Eosinophils Absolute Basophils Sodium 137 139 Potassium 5.1 5.3 H Chloride 102 104 Carbon Dioxide 23.5 24.0 Anion Gap 11.5 H 11.0 BUN 29 H 27 H Creatinine 2.13 H 2.13 H Estimated GFR/1.73 m2 22.97 22.97 Glucose 229 H D 152 H Calcium 9.2 9.5 Magnesium Total Bilirubin AST ALT Alkaline Phosphatase Troponin I NT-Pro-B Natriuret Pep 70 Cancelled Total Protein Albumin Urine Color Urine Clarity Urine pH Ur Specific Whiting Urine Protein Urine Ketones Urine Blood Urine Nitrite Urine Bilirubin Urine Urobilinogen Ur Leukocyte Esterase Urine RBC Urine WBC Ur Epithelial Cells Urine Crystals Urine Bacteria Urine Casts Urine Mucus Urine Other Ur Culture Indicated? Urine Glucose COVID-19 PCR Nasopharyn COVID-19 PCR Ref Test Perform Site 02/20/20 02/20/20 02/20/20 19:50 18:50 15:50 WBC 6.08 RBC 4.85 Hgb 14.0 Hct 42.8 MCV 88.2 MCH 28.9 MCHC 32.7 RDW 14.3 Plt Count 214 MPV 10.5 Immature Gran % 0.3 Neutrophils % 57.6 Lymphocytes % 29.8 Monocytes % 9.2 Eosinophils % 2.6 Basophils % 0.5 Absolute Neutrophils 3.50 Absolute Lymphocytes 1.81 Absolute Monocytes 0.56 Absolute Eosinophils 0.16 Absolute Basophils 0.03 Sodium 139 Potassium 6.1 H* Chloride 108 H Carbon Dioxide 22.9 Anion Gap 8.1 BUN 28 H Creatinine 2.06 H Estimated GFR/1.73 m2 23.88 Glucose 84 Calcium 8.7 Magnesium Total Bilirubin AST ALT Alkaline Phosphatase Troponin I NT-Pro-B Natriuret Pep Total Protein Albumin Urine Color Urine Clarity Urine pH Ur Specific Whiting Urine Protein Urine Ketones Urine Blood Urine Nitrite Urine Bilirubin Urine Urobilinogen Ur Leukocyte Esterase Urine RBC Urine WBC Ur Epithelial Cells Urine Crystals Urine Bacteria Urine Casts Urine Mucus Urine Other Ur Culture Indicated? Urine Glucose COVID-19 PCR Negative Nasopharyn COVID-19 PCR Not Applicable Ref Test Perform Site [facility] 02/20/20 02/20/20 15:50 13:55 WBC RBC Hgb Hct MCV MCH MCHC RDW Plt Count MPV Immature Gran % Neutrophils % Lymphocytes % Monocytes % Eosinophils % Basophils % Absolute Neutrophils Absolute Lymphocytes Absolute Monocytes Absolute Eosinophils Absolute Basophils Sodium 140 Potassium 5.6 H Chloride 107 Carbon Dioxide 22.8 Anion Gap 10.2 BUN 28 H Creatinine 2.16 H Estimated GFR/1.73 m2 22.60 Glucose 110 H D Calcium 9.4 Magnesium 2.1 Total Bilirubin 0.6 AST 18 ALT 10 L Alkaline Phosphatase 68 Troponin I < 0.05 NT-Pro-B Natriuret Pep Total Protein 8.0 Albumin 4.0 Urine Color Yellow Urine Clarity Clear Urine pH 5.5 Ur Specific Whiting 1.025 Urine Protein 30 H Urine Ketones Negative Urine Blood Negative Urine Nitrite Negative Urine Bilirubin Negative Urine Urobilinogen 0.2 Ur Leukocyte Esterase Trace H Urine RBC Negative Urine WBC 5-10 Ur Epithelial Cells Few Urine Crystals Negative Urine Bacteria Negative Urine Casts Negative Urine Mucus Negative Urine Other Negative Ur Culture Indicated? Yes Urine Glucose Negative COVID-19 PCR Nasopharyn COVID-19 PCR Ref Test Perform Site Preliminary micro results at discharge 02/20/20 13:55 Urine Culture - Preliminary Urine - Reflex from Ua Gram Positive [facility] Medical History (Updated 02/21/20 @ 15:39 by Renetta Rodriguez MD) Hypothyroidism, unspecified (Acute 03/28/18) Stage 3 chronic kidney disease (Inactive 03/28/18) 01/30/19 [facility] stable stage 4 A2 CKD 04/24/19 [facility] Nephrology - f/u 6 months Type 2 diabetes mellitus without complication (Inactive ~1996) Unspecified essential hypertension (Inactive 03/28/18) Surgical History Breast, Lumpectomy Breast, Mastectomy Family History Mother Neoplasm Father No problems noted. Other COPD (chronic obstructive pulmonary disease) Social History (Updated 02/20/20 @ 20:47 by Martin Fraire) Smoking/Tobacco Use Status: Never Alcohol Intake: never Drug use: Never Substance use type: does not use Housing: house What type of physical activity do you participate in: regular exercise Seatbelt use: always Drive intox or ride w/intox auto haulaway driver: No Working smoke detector in home: Yes Fire extinguisher in home: Yes Carbon monox detector in home: Yes Do you feel safe at home: Yes Additional Social history: Lives in [place]. She is a retired RN, and has worked at [employer], [employer] [place], and is a volunteer on [employer].
== END 2020-02-21 16:35 | disposition home or self-care (01) ==
LOC: ER 19:20 → MS 20:16
PROVIDERS: Admitting Provider Family Medicine; Emergency Provider Physician Assistant; PCP Family Medicine; Visit Provider Internal Medicine
DX: E87.5 Hyperkalemia (principal); N17.9 Acute kidney failure, unspecified; T46.4X5A Adverse effect of angiotensin-converting-enzyme inhibitors, initial encounter; E11.22 Type 2 diabetes mellitus with diabetic chronic kidney disease; N18.9 Chronic kidney disease, unspecified; I12.9 Hypertensive chronic kidney disease with stage 1 through stage 4 chronic kidney disease, or unspecified chronic kidney disease; Z79.899 Other long term (current) drug therapy; R06.09 Other forms of dyspnea; E03.9 Hypothyroidism, unspecified; Z03.818 Encounter for observation for suspected exposure to other biological agents ruled out
CPT/HCPCS: 36415; 80048; 80053; 80061; 93005; 96360; 99217; 99219; 99285; NC; U0003; 81003; 81015; 82040; 83735; 83880; 83970; 84100; 84439; 84443; 84484; 84550; 85025; 87086; 93010; G0378; J1941

== ENCOUNTER 2020-02-27 01:27 | Outpatient (CLI) | payer MEDICARE, SELFPAY ==
--- NOTE | 2020-02-27 13:31 | DI.US_ITS ---
APPROVED REPORT EXAM: Comprehensive 2D, Doppler, and color-flow Echocardiogram Patient Location: Out-Patient Budget Record Clerk: Ngozi Tao RDCS (AE) Indications: HOLLIS Other Information Study Quality: Fair Conclusion Left Ventricle : The left ventricle is normal size. The left ventricular systolic function is normal. The left ventricular ejection fraction is within the normal range. There is normal left ventricular wall thickness. There is normal LV segmental wall motion. The left ventricular diastolic function is normal. LVEF is 50%. Right Ventricle : Right ventricle is not well visualized. Right ventricular systolic function could n ot be assessed. Atria : The left atrium size is normal. Right atrium size is normal. Valves: There are no hemodynamically significant valvular lesions. Great Vessels : The ascending aorta is mildly dilated. IVC is normal in size and collapses >50% with inspiration. Please see remainder of study for further details. There is no prior exam available for comparison. Wall motion Left Ventricle The left ventricle is normal size. The left ventricular systolic function is normal. The left ventric ular ejection fraction is within the normal range. There is normal left ventricular wall thickness. T here is normal LV segmental wall motion. The left ventricular diastolic function is normal. There is no ventricular septal defect visualized. LVEF is 50%. Right Ventricle Right ventricle is not well visualized. Right ventricular systolic function could not be assessed. Atria The left atrium size is normal. Right atrium size is normal. The interatrial septum is intact with no evidence for an atrial septal defect. Aortic Valve Aortic valve is thickened but has adequate excursion. Aortic valve is trileaflet. There is no aortic valvular stenosis. No aortic regurgitation is present. Mitral Valve Mild mitral annular calcification. No evidence of mitral valve stenosis. Trace mitral regurgitation. Tricuspid Valve The tricuspid valve is normal in structure. There is no tricuspid valve stenosis. Trace tricuspid reg urgitation. Unable to assess PA pressure. Pulmonic Valve Pulmonic valve is not well visualized. There is no pulmonic valvular stenosis. There is no pulmonic v alvular regurgitation. Great Vessels The aortic root is normal in size. The ascending aorta is mildly dilated. IVC is normal in size and c ollapses >50% with inspiration. Pericardium There is no pericardial effusion. 2D Dimensions IVSD d PLAX 1.04 cm F: 0.6-1.0 LV Vol A2C d MOD 91.5 mL LVPW d PLAX 1.00 cm F: 0.6 - 1.0 LV Vol A4C d MOD 99.3 mL LVID d PLAX 4.84 cm F: 3.8 - 5.2 LA vol/ BSA A2C s A-L 22.5 mL/m2 LVDs 3.55 cm F: 2.2 - 3.5 LA vol/ BSA A4C s A-L 22.1 mL/m2 Ao Root d 2.93 cm F: 2.7 - 3.3 LA Vol/ BSA Biplane s A-L 22.7 mL/m2 RA Area A4C 13.71 cm2 LA Area A4C s MOD 15.77 cm2 RA Vol/ BSA A4C s A-L 21.5 mL/m2 LA Area A2C s MOD 15.62 cm2 Ao Asc Diam d 3.50 cm F: 2.3 - 3.1 LV EF A4C MOD 50.5 % LV EF Teichholz 51.3 % LV EF A2C MOD 50.0 % LVEF (Alvarez's) 51.46 % F: 54 - 74 LV EF Biplane MOD 51.5 % LV Volume 76.01 mL F: 46 - 106 SV 50.56 mL LV Volume Index 41.76 mL/m2 F: 29 - 61 SV Index 27.67 mL/m2 LV Vol Biplane MOD 98.3 mL FS 26.20 % M-Mode TAPSE 2.30 cm (M/F) >1.7 LV Diastology MV E' medial 0.075 (>0.07 m/s) E/A Ratio 0.6 LV E/e MED 7.75 (<14) MV E Vmax 0.59 (0.4-1.3 m/s) MV E' lateral 0.064 (>0.1 m/s) MV A Vmax 1.00 (0.4-1.3 m/s) LV E/e LAT 9.20 (<14) MV E/A Ratio 0.57 MV E/E' medial 7.77 MV E/E' lateral 9.21 Aortic Valve LVOT Area 3.76 cm2 AoV Area Vmax 2.64 cm2 LVOT Vmax 1.02 m/s AoV Area/ BSA (Vmax) 1.44 cm2/m2 LVOT Mean Deny. 0.65 m/s ADE Mean Deny. 2.31 cm2 LVOT Peak Grad 4.2 mmHg ADE Mean Deny. Index 1.26 cm2/m2 LVOT Mean Grad 2.0 mmHg LVOT VTI 0.210 m LVOT Diam s 2.15 cm AoV Vmax 1.46 m/s Velocity Ratio 0.69 AoV Mean Deny. 1.05 m/s AoV Peak Grad 8.5 mmHg LVOT SV 78.97 mL AoV Mean Grad 5.0 mmHg AoV VTI 0.275 m AoV Area VTI 2.87 cm2 AoV Area/ BSA (VTI) 1.57 cm/m2 Mitral Valve MV DT 260 (160-240 msec) MV PHT 75 msec MV Area PHT 2.92 cm2 Pulmonary Valve PV Vmax 1.22 (0.5-1.5 m/s) RVOT Peak Gr. 3.00 mmHg PV Peak Grad 5.9 mmHg RVOT Mean Gr. 1.40 mmHg PV Mean Grad 2.4 mmHg RVOT VTI 0.158 m PV VTI 0.192 m RVOT Vmax 0.87 m/s
== END 2020-02-27 01:47 ==
PROVIDERS: PCP Family Medicine; Visit Provider Internal Medicine
DX: R06.09 Other forms of dyspnea (principal); I77.810 Thoracic aortic ectasia
CPT/HCPCS: 93306

== ENCOUNTER 2020-02-28 02:43 | Outpatient (CLI) | payer MEDICARE, SELFPAY ==
[2020-02-28 10:09] LABS: Anion Gap 11.3 mmol/L (3-11); BUN 25 mg/dL (7-18); CO2 24.7 mmol/L (21.0-32.0); CREATININE 2.02 mg/dL (0.55-1.02); Calcium 9.3 mg/dL (8.5-10.1); Chloride 103 mmol/L (98-107); Estimated GFR 24.42 (mL/min/1.73m2); Glucose 120 mg/dL (74-106); Magnesium 1.9 mg/dL (1.8-2.4); Potassium 4.9 mmol/L (3.5-5.1); Sodium 139 mmol/L (136-145)
== END 2020-02-28 03:03 ==
PROVIDERS: PCP Family Medicine; Visit Provider Internal Medicine
DX: E87.5 Hyperkalemia (principal); N17.9 Acute kidney failure, unspecified; N18.9 Chronic kidney disease, unspecified
CPT/HCPCS: 36415; 80048; 83735

== ENCOUNTER 2020-03-05 00:07 | Outpatient (CLI) | payer MEDICARE, SELFPAY ==
--- NOTE | 2020-03-05 06:45 | DI.NM_ITS ---
APPROVED REPORT Exam: Pharmacologic Patient Location: Out-Patient Room/Bed: Stress Nurse: Alanis Wall RN BMI: 49.06 Baseline Rhythm: Sinus Rhythm Indications: Exertional Dyspnea. Medical History Medical History: Diabetic ??? Insulin, HTN Cardiac Medications: Aspirin. Regular Insulin. NPH Insulin. Simvastatin. Metoprolol. Furosemide. Levo thyroxine., Allergies: Amoxicillin Cardiac Risk Factors: HTN, Diabetes (insulin) Exercise History: Indeterminate Physical Disabilities: Legs Lung Sounds: Clear to auscultation Heart Sounds: Regular Stress Test Details Test: Pharmacologic stress testing performed using 0.4 mg of regadenoson per 5 mL given IV over 10 s econds. Nuclear Acquisition: Rest Tc-99m/Stress Tc-99m 1 day Rest Isotope: Tc-99m Sestamibi. Dose: 14.5 Date: 03/05/2020 Injection Time: 0850 Stress Isotope: Tc-99m Sestamibi. Dose: 45.3 Date: 03/05/2020 Injection Time: 1040 HR Resting HR Supine: 91 bpm Max Heart Rate (APMHR): 151 bpm Target HR (85% APMHR): 128 bpm Max HR Achieved: 104 bpm % of APMHR: 68 Recovery HR: 92 bpm HR response to stress: Normal HR response to stress BP Resting BP Supine: 150/78 mmHg Max BP: 158/80 mmHg BP response to stress: Normal blood pressure response to stress. ECG Resting ECG: Sinus Rhythm Stress ECG: Sinus Rhythm, Sinus Tachycardia ST Change: None Arrhythmia: None Recovery ECG: Sinus Rhythm Recovery ST Change: None Recovery Arrhythmia: None Stress ECG Conclusion 1. Is a pharmacological stress test. 2. The patient no symptoms suggestive of ischemia. 3. The EKG portion of this exam is indeterminate. Stress Test Summary STAGE HR BP Symptoms NOTES Supine 91 150/78 1 min post Lexiscan injection 104 158/80 3 min post Lexiscan injection 98 144/76 6 min post Lexiscan injection 92 150/82 MPI Conclusion The imaging portion of this exam was uninterpretable due to significant bowel uptake and attenuation. Please consider alternative stress testing modality. Radiologist Interpretation Radiologist Interpretation by: Macho Spears MD Interpretation Date/Time: 03/06/2020 08:38:23
[2020-03-05] MEDS: Regadenoson 0.4 MG/5 ML SYR IVP (11:12)
== END 2020-03-05 00:27 ==
PROVIDERS: PCP Family Medicine; Visit Provider Internal Medicine
DX: R06.89 Other abnormalities of breathing (principal); E11.9 Type 2 diabetes mellitus without complications; I10 Essential (primary) hypertension; Z68.42 Body mass index [BMI] 45.0-49.9, adult; N17.9 Acute kidney failure, unspecified; E87.5 Hyperkalemia; R93.421 Abnormal radiologic findings on diagnostic imaging of right kidney
CPT/HCPCS: 76770; 78452; 93016; 93018; 93017; J2785

== ENCOUNTER 2020-03-05 00:31 | Outpatient (CLI) | payer MEDICARE, SELFPAY ==
--- NOTE | 2020-03-05 | DI.US_ITS ---
EXAM: US RENAL CLINICAL HISTORY: ACUTE KIDNEY INJURY N17.9, HYPERKALEMIA E87.5. TECHNIQUE: Lopes scale, color and spectral Doppler were used. COMPARISON: US US renal from 11/21/2018 FINDINGS: Renal size in cm: Right: 10.8. Left: 10.5. Echogenicity: Normal. Hydronephrosis: Mild prominence of the right renal pelvis. This may represent a extrarenal pelvis ve rsus mild hydronephrosis. Cyst or mass: 2.1 x 1.5 x 1.8 cm simple left parapelvic cyst. Nephrolithiasis: Bilateral echogenic foci suggesting nonobstructing stones. The largest is in the lo wer pole of the left kidney and measures 8 mm. Other findings: None. Bladder:Inadequately distended prior to the examination. Ureteral jets: Right: Not visualized on this examination. Left: Not visualized on this examination. Prevoid vol:2.6 cc Postvoid vol:Inadequately distended prior to the examination. Cc Renal color flow: Symmetric and within normal limits. IMPRESSION: 1. Evaluation of the urinary bladder is limited due to inadequate filling prior to the examination. 2. Bilateral echogenic foci suspicious for nonobstructing renal stones. 3. Prominent right extrarenal pelvis versus mild hydronephrosis. DATA REPOSITORY:
== END 2020-03-05 00:51 ==
PROVIDERS: PCP Family Medicine; Visit Provider Internal Medicine Nephrology
DX: N17.9 Acute kidney failure, unspecified (principal); E87.5 Hyperkalemia; R93.421 Abnormal radiologic findings on diagnostic imaging of right kidney
CPT/HCPCS: 76770

== ENCOUNTER 2020-03-31 02:45 | Outpatient (CLI) | payer MEDICARE, SELFPAY ==
[2020-03-31 15:45] LABS: BUN 37 mg/dL (7-18); CREATININE 2.33 mg/dL (0.55-1.02); Calcium 9.6 mg/dL (8.5-10.1); Chloride 100 mmol/L (98-107); Estimated GFR 20.71 (mL/min/1.73m2); Glucose 125 mg/dL (74-106); Potassium 4.2 mmol/L (3.5-5.1); Sodium 142 mmol/L (136-145)
[2020-03-31 17:05] LABS: ALT 15 U/L (14-59); AST 24 U/L (15-37); Albumin 4.2 g/dL (3.4-5.0); Alkaline Phosphatase 65 U/L (46-116); Anion Gap 15.9 mmol/L (3-11); BUN 36 mg/dL (7-18); Bilirubin, Total 0.8 mg/dL (0.2-1.0); CO2 27.1 mmol/L (21.0-32.0); CREATININE 2.31 mg/dL (0.55-1.02); Calcium 9.6 mg/dL (8.5-10.1); Chloride 100 mmol/L (98-107); Estimated GFR 20.92 (mL/min/1.73m2); Glucose 126 mg/dL (74-106); Potassium 4.2 mmol/L (3.5-5.1); Sodium 143 mmol/L (136-145); Total Protein 7.9 g/dL (6.4-8.2)
== END 2020-03-31 03:05 ==
PROVIDERS: Internal Medicine; PCP Family Medicine; Visit Provider Family Medicine
DX: N18.9 Chronic kidney disease, unspecified (principal); Z85.3 Personal history of malignant neoplasm of breast; Z79.811 Long term (current) use of aromatase inhibitors
CPT/HCPCS: 36415; 80048; 80053

== ENCOUNTER 2020-06-09 02:36 | Outpatient (CLI) | payer MEDICARE, SELFPAY ==
[2020-06-09 12:29] LABS: TSH (W/Ref FT4) 5.21 uIU/mL (0.36-3.74)
[2020-06-09 12:52] LABS: FREE T4 1.08 ng/dL (0.76-1.46)
== END 2020-06-09 02:56 ==
PROVIDERS: PCP Family Medicine; Visit Provider Family Medicine
DX: E11.9 Type 2 diabetes mellitus without complications (principal)
CPT/HCPCS: 36415; 84439; 84443

== ENCOUNTER 2023-03-17 13:10 | Outpatient (CLI) | payer MEDICARE, SELFPAY ==
[2023-03-17 14:57] LABS: Abs Immature Grans 0.03 10^3/uL (0.0-0.06); Absolute Basophil Count 0.05 10^3/uL (0.0-0.2); Absolute Eosinophil Count 0.26 10^3/uL (0.0-0.7); Absolute Lymphocyte Count 1.34 10^3/uL (1.2-3.4); Absolute Monocyte Count 0.74 10^3/uL (0.1-0.8); Absolute Neutrophil Count 5.21 10^3/uL (1.2-6.7); Basophils % 0.7; Eosinophils % 3.4; HCT 42.3 % (36.0-46.0); HGB 14.5 g/dL (11.2-15.7); Immature Grans % 0.4; Lymphocytes % 17.6; MCH 30.1 pg (27.0-33.0); MCHC 34.3 % (32.0-36.0); MCV 88 fL (80-95); MPV 11.8 fL (8.0-11.0); Monocytes % 9.7; Neutrophils % 68.2; Platelet Count 240 10^3/uL (130-400); RBC 4.81 10^6/uL (3.93-5.22); RDW 13.1 % (11.7-14.6); RDW-SD 42.4 fL; WBC 7.63 10^3/uL (4.4-10.8)
== END 2023-03-17 13:11 | disposition home or self-care (01) ==
LOC: LBO 13:12
PROVIDERS: PCP Family Medicine; Visit Provider Internal Medicine Nephrology
DX: E11.65 Type 2 diabetes mellitus with hyperglycemia; Z79.4 Long term (current) use of insulin; N18.4 Chronic kidney disease, stage 4 (severe)
CPT/HCPCS: 36415; 80053; 82533; 83970; 84100; 84443; 84550; 85025

== ENCOUNTER 2023-06-21 14:51 | Outpatient (CLI) | payer MEDICARE, SELFPAY ==
[2023-06-21 15:19] LABS: Hemoglobin A1C 6.7 % (<5.7)
[2023-06-21 16:18] LABS: Anion Gap 12.5 mmol/L (3-11); BUN 38 mg/dL (7-18); CO2 27.5 mmol/L (21.0-32.0); CREATININE 2.1 mg/dL (0.55-1.02); Calcium 9.9 mg/dL (8.5-10.1); Chloride 104 mmol/L (98-107); Estimated GFR 24.57 (mL/min/1.73m2); Glucose 61 mg/dL (74-106); Sodium 144 mmol/L (136-145); TSH 0.81 uIU/mL (0.36-3.74)
== END 2023-06-21 14:52 | disposition home or self-care (01) ==
LOC: LBO 14:51
PROVIDERS: PCP Family Medicine; Visit Provider Internal Medicine Nephrology
DX: E87.0 Hyperosmolality and hypernatremia (principal); E11.22 Type 2 diabetes mellitus with diabetic chronic kidney disease
CPT/HCPCS: 36415; 80048; 83036; 84436; 84443

== ENCOUNTER 2024-02-29 11:38 | Outpatient (CLI) | payer MEDICARE, SELFPAY ==
[2024-02-29 11:25] LABS: HCT 45.9 % (36.0-46.0); HGB 15.3 g/dL (11.2-15.7); MCH 29.8 pg (27.0-33.0); MCHC 33.3 % (32.0-36.0); MCV 90 fL (80-95); MPV 10.6 fL (8.0-11.0); Platelet Count 254 10^3/uL (130-400); RBC 5.13 10^6/uL (3.93-5.22); RDW 13.2 % (11.7-14.6); WBC 10.33 10^3/uL (4.4-10.8)
[2024-02-29 12:18] LABS: BUN 37 mg/dL (7-18); CREATININE 2.3 mg/dL (0.55-1.02); Chloride 106 mmol/L (98-107); Glucose 137 mg/dL (74-106); Potassium 3.9 mmol/L (3.5-5.1); Sodium 143 mmol/L (136-145); TSH (W/Ref FT4) 1.23 uIU/mL (0.36-3.74)
== END 2024-02-29 11:39 | disposition home or self-care (01) ==
LOC: LBO 11:39
PROVIDERS: PCP Family Medicine; Visit Provider Family Medicine
DX: R73.9 Hyperglycemia, unspecified (principal); N18.9 Chronic kidney disease, unspecified; E03.9 Hypothyroidism, unspecified
CPT/HCPCS: 36415; 80048; 82533; 85027; 84443

== ENCOUNTER 2024-09-26 03:11 | Outpatient (CLI) | payer MEDICARE, SELFPAY ==
[2024-09-26 10:29] LABS: Anion Gap 10.5 mmol/L (3-11); BUN 72 mg/dL (7-18); CO2 25.5 mmol/L (21.0-32.0); CREATININE 2.9 mg/dL (0.55-1.02); Calcium 9.2 mg/dL (8.5-10.1); Chloride 106 mmol/L (98-107); Estimated GFR 16.58 (mL/min/1.73m2); Glucose 149 mg/dL (74-106); Potassium 5.1 mmol/L (3.5-5.1); Sodium 142 mmol/L (136-145)
== END 2024-09-26 03:12 | disposition home or self-care (01) ==
PROVIDERS: PCP Family Medicine; Visit Provider Family Medicine
DX: E11.9 Type 2 diabetes mellitus without complications (principal)
CPT/HCPCS: 36415; 80048

== ENCOUNTER 2025-01-08 02:12 | Outpatient (CLI) | payer MEDICARE, SELFPAY ==
[2025-01-08 14:10] LABS: Anion Gap 13.1 mmol/L (3-11); CO2 21.9 mmol/L (21.0-32.0); CREATININE 3.1 mg/dL (0.55-1.02); Calcium 8.9 mg/dL (8.5-10.1); Chloride 106 mmol/L (98-107); Estimated GFR 15.21 (mL/min/1.73m2); Glucose 258 mg/dL (74-106); Potassium 5.1 mmol/L (3.5-5.1); Sodium 141 mmol/L (136-145)
[2025-01-08 14:20] LABS: BUN 86 mg/dL (7-18)
== END 2025-01-08 02:13 | disposition home or self-care (01) ==
LOC: LBO 02:12
PROVIDERS: PCP Family Medicine; Visit Provider Internal Medicine
DX: N18.4 Chronic kidney disease, stage 4 (severe) (principal)
CPT/HCPCS: 36415; 80048

== ENCOUNTER 2025-07-17 10:26 | Outpatient (CLI) | payer MEDICARE, SELFPAY ==
[2025-07-17 11:31] LABS: Anion Gap 13.1 mmol/L (3-11); BUN 66 mg/dL (9-23); CO2 21.9 mmol/L (20.0-31.0); Calcium 9.7 mg/dL (8.3-10.6); Chloride 108 mmol/L (98-107); Glucose 91 mg/dL (74-106); Potassium 4.7 mmol/L (3.5-5.1); Sodium 143 mmol/L (136-145)
== END 2025-07-17 10:27 | disposition home or self-care (01) ==
PROVIDERS: PCP Family Medicine; Visit Provider Internal Medicine
DX: N18.4 Chronic kidney disease, stage 4 (severe) (principal)
CPT/HCPCS: 36415; 80048